=== PATIENT | female | born 1960 | race Caucasian/White ===

== ENCOUNTER 2018-03-14 17:13 | Emergency (ER) | payer MEDICARE ==
[2018-03-14 18:09] LABS: Absolute Lymphocytes (CBC) 3.5 K/uL (0.7-4.9); Absolute Monocytes 0.6 K/uL (0.1-1.3); Absolute Neutrophil 3.8 K/uL (1.8-8.0); Eosinophils % 1.1 % (0-4.4); Hematocrit 33.7 % (36.0-45.0); Lymphocytes % 43.7 % (15.3-44.8); MCH 29.6 pg (27.0-35.0); MCV 90.3 fL (80-100); MPV 9.7 fL (7.6-11.3); Monocytes % 7.5 % (3.3-12.3); RBC Red Blood Cell Count 3.73 M/uL (3.86-4.86)
[2018-03-14] MEDS ORDERED: ONDANSETRON 4 MG/2 ML VIAL ONE (18:11)
[2018-03-14] MEDS ORDERED: FENTANYL CITR 100 MCG/2 ML ONE (18:11)
[2018-03-14 18:18] LABS: Potassium 3.2 mEq/L (3.6-5.0)
[2018-03-14] MEDS ORDERED: DIPHENHYDRAMINE 50 MG/ML VIAL ONE (18:46)
[2018-03-14] MEDS ORDERED: METHYLPREDNISOLONE 125 MG INJ ONE (18:46)
[2018-03-14 19:22] LABS: Urine Blood NEGATIVE (NEG); Urine Glucose NEGATIVE (NEG); Urine Protein NEGATIVE (NEG); Urine Specific Gravity <1.005 (1.005-1.030)
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
--- NOTE | 2018-03-14 19:31 | RAD REPORT ---
EXAM DESCRIPTION: Tam Single View03/14/2018 5:38 pm CLINICAL HISTORY: Chest pain COMPARISON: none FINDINGS: The lungs appear clear of acute infiltrate. The heart is borderline enlarged IMPRESSION: No acute abnormalities displayed
[2018-03-14] MEDS ORDERED: MORPHINE 4 MG/ML SYR ONE (21:19)
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
--- NOTE | 2018-03-14 21:25 | RAD REPORT ---
EXAM DESCRIPTION: MRI - Brain W/Wo Cont - 03/14/2018 9:07 pm CLINICAL HISTORY: Cerebellar mass COMPARISON: Head CT March 2018 TECHNIQUE: Axial, sagittal, and coronal magnetic images of the brain were obtained. 18 cc MultiHance is administered intravenously. FINDINGS: T2 weighted sequences demonstrate a 9 millimeter area of low signal within the left cerebe llum. It demonstrates mild enhancement. An intracranial bleed is not seen. Diffusion-weighted/ADC mapping does not reveal evidence of acute infarction. The ventricles are normal caliber. Mild to moderate signal within the brainstem, periventricular deep white matter may represent ischemi c changes secondary to small vessel disease. The sinuses and mastoids are clear. IMPRESSION: A 9 millimeter area of abnormal signal within the left cerebellum probably either repres ents a cavernous angioma or atypical meningioma. The exam was discussed with Harvey Harvey in the Emergency Room
== END 2018-03-14 21:54 | disposition home or self-care (01) ==
LOC: ER 17:13
DX: S13.4XXA Sprain of ligaments of cervical spine, initial encounter (principal); G89.11 Acute pain due to trauma; I10 Essential (primary) hypertension; V49.49XA Driver injured in collision with other motor vehicles in traffic accident, initial encounter; Z91.040 Latex allergy status; Z91.048 Other nonmedicinal substance allergy status
CPT/HCPCS: 36415; 70450; 70553; 71045; 71260; 72125; 72170; 74177; 80048; 81003; 85025; 86850; 86900; 86901; 99285; A9577; J2405; J2930; J3010; Q9967; 80053; 85027

== ENCOUNTER 2018-05-19 01:26 | Emergency (ER) | payer MEDICARE ==
--- NOTE | 2018-05-19 02:27 | EDPHYS ---
Physician Documentation [facility] Name: Karma Poole Age: 57 yrs Sex: Female : 1960 Arrival Date: 05/19/2018 Time: 01:27 Bed 7 Private MD: Aníbal Goldsmith ED Physician Trino Sotelo HPI: 05/19 02:00 This 57 yrs old Female presents to ER via Ambulatory with complaints of Foot cp Pain, Other, Ankle pain. 02:00 The patient presents with pain, that is acute. The complaints affect the right foot. cp Context: resulted from an unknown cause, the patient can fully bear weight, the patient is able to ambulate. Onset: The symptoms/episode began/occurred 1 week(s) ago. 02:00 Patient also c/o of "catching" and "popping" of right middle finger for past 2-3 days. cp Patient denies injury. 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 - Social history:: Smoking status: unknown. - Ebola Screening: : Patient negative for fever greater than or equal to 101.5 degrees Fahrenheit, and additional compatible Ebola Virus Disease symptoms Patient denies exposure to infectious person Patient denies travel to an Ebola-affected area in the 21 days before illness onset No symptoms or risks identified at this time. ROS: 02:05 MS/extremity: Positive for right foot pain and "catching and popping" of right middle cp finger. 02:05 Eyes: Negative for injury, pain, redness, and discharge. cp 02:05 Constitutional: Negative for body aches, chills, fever, poor PO intake. 02:05 Cardiovascular: Negative for chest pain, edema, palpitations. 02:05 Respiratory: Negative for cough, shortness of breath, wheezing. 02:05 Abdomen/GI: Negative for abdominal pain, nausea, vomiting, and diarrhea. 02:05 Skin: Negative for cellulitis, rash. 02:05 All other systems are negative. Exam: 02:08 Constitutional: The patient appears in no acute distress, alert, awake, non-toxic, well cp developed, well nourished. 02:08 Head/Face: Normocephalic, atraumatic. cp 02:08 Eyes: Periorbital structures: appear normal, Conjunctiva: normal, no exudate, no injection, Lids and lashes: appear normal, bilaterally. 02:08 ENT: External ear(s): are unremarkable, Nose: is normal, Mouth: Lips: moist, Oral mucosa: moist, Posterior pharynx: is normal, airway is patent. 02:08 Chest/axilla: Inspection: normal. 02:08 Cardiovascular: Rate: tachycardic, Pulses: Pulses are 2+ in right radial artery and right dorsalis pedis artery. 02:08 Respiratory: the patient does not display signs of respiratory distress, Respirations: normal, no use of accessory muscles, no retractions, no splinting, no tachypnea. 02:08 Musculoskeletal/extremity: Extremities: grossly normal except: noted in the right hand: tenderness, along flexor side of right middle finger with catching of tendon at PIP joint when finger is flexed, There is no evidence of deformity, injury, noted in the medial aspect of plantar surface of right foot: swelling, tenderness, no evidence of deformity, erythema, injury, ROM: full active range of motion, in the right hand and right foot. 02:08 Skin: cellulitis, is not appreciated, no rash present. Vital Signs: 01:37 BP 110 / 78; Pulse 105; Resp 18; Temp 97.9(O); Pulse Ox 96% ; Weight 84.82 kg; Height 5 bp ft. 2 in. (157.48 cm); 03:03 BP 113 / 89; Pulse 84; Resp 18; Pulse Ox 96% on R/A; tl2 01:37 Body Mass Index 34.20 (84.82 kg, 157.48 cm) bp MDM: 01:41 Patient medically screened. cp 02:00 Differential diagnosis: dislocation, closed fracture, contusion, tendonitis. cp 02:25 Data reviewed: vital signs, nurses notes, radiologic studies, plain films. cp 02:25 Test interpretation: by ED physician or midlevel provider: plain radiologic studies. 05/19 01:47 Order name: XRAY Foot RIGHT 3 View 05/19 01:47 Order name: XRAY Hand RIGHT 3 View 05/19 02:28 Order name: Finger Splint; Complete Time: 03:02 cp Administered Medications: 03:03 Drug: Ibuprofen 800 mg Route: PO; tl2 03:04 Follow up: Response: No adverse reaction; Medication administered at discharge. tl2 03:03 Drug: traMADol 50 mg Route: PO; tl2 03:05 Follow up: Response: No adverse reaction; Medication administered at discharge. tl2 Disposition: 05/19/18 02:26 Discharged to Home. Impression: Trigger finger, right middle finger, Pain in right foot. - Condition is Stable. - Discharge Instructions: Trigger Finger, Foot Pain. - Prescriptions for Diclofenac Sodium 75 mg Oral Tablet, Delayed Release (E.C.) - take 1 tablet by ORAL route 2 times per day; 20 tablet. Tramadol 50 mg Oral Tablet - take 1 tablet by ORAL route every 8 hours as needed; 15 tablet. - Medication Reconciliation Form, Thank You Letter, Antibiotic Education, Prescription Opioid Use form. - Follow up: Ryley Rodriguez MD; When: 2 - 3 days; Reason: right middle trigger finger. Follow up: Norberto Catherine DPM; When: 2 - 3 days; Reason: right foot pain. - Problem is new. - Symptoms have improved. Addendum: 05/20/2018 04:43 Co-signature as Attending Physician, Trino Sotelo MD. g s Signatures: Dispatcher [employer] EDMS Collin Oscar PA PA cp Doris Santana RN RN tl2 Trino Sotelo MD MD Nixon Aguiar RN RN bp Corrections: (The following items were deleted from the chart) 05/19 03:05 02:26 05/19/2018 02:26 Discharged to Home. Impression: Trigger finger, right middle tl2 finger; Pain in right foot. Condition is Stable. Forms are Medication Reconciliation Form, Thank You Letter, Antibiotic Education, Prescription Opioid Use. Follow up: Ryley Rodriguez; When: 2 - 3 days; Reason: right middle trigger finger. Follow up: Norberto Catherine; When: 2 - 3 days; Reason: right foot pain. Problem is new. Symptoms have improved. cp
--- NOTE | 2018-05-19 02:27 | ER ---
Nurse's Notes [facility] Name: Karma Poole Age: 57 yrs Sex: Female : 1960 Arrival Date: 05/19/2018 Time: 01:27 Bed 7 Private MD: Aníbal Goldsmith Diagnosis: Trigger finger, right middle finger;Pain in right foot Presentation: 05/19 01:36 Presenting complaint: Patient states: RIGHT FOOT AND HEEL PAIN. Transition of care: bp patient was not received from another setting of care. Onset of symptoms was May 16, 2018. Risk Assessment: Do you want to hurt yourself or someone else? Patient reports no desire to harm self or others. Initial Sepsis Screen: Does the patient meet any 2 criteria? No. Patient's initial sepsis screen is negative. Does the patient have a suspected source of infection? No. Patient's initial sepsis screen is negative. Care prior to arrival: None. 01:36 Method Of Arrival: Ambulatory bp 01:36 Acuity: FEDE 4 bp Triage Assessment: 01:37 General: Appears in no apparent distress. comfortable, obese, Behavior is cooperative, bp appropriate for age, anxious. Pain: Complains of pain in right foot. 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 - Social history:: Smoking status: unknown. - Ebola Screening: : Patient negative for fever greater than or equal to 101.5 degrees Fahrenheit, and additional compatible Ebola Virus Disease symptoms Patient denies exposure to infectious person Patient denies travel to an Ebola-affected area in the 21 days before illness onset No symptoms or risks identified at this time. Screenin:01 Abuse screen: Denies threats or abuse. Denies injuries from another. Nutritional bp screening: No deficits noted. Tuberculosis screening: No symptoms or risk factors identified. Fall Risk None identified. Assessment: 01:37 General: Appears in no apparent distress. Behavior is appropriate for age. Pain: lp1 Complains of pain in lateral side of right foot and instep of right foot, heel Pain currently is 8 out of 10 on a pain scale. Quality of pain is described as stabbing, Aggravated by increased activity, weight bearing. Neuro: Level of Consciousness is awake, alert, obeys commands. Cardiovascular: Patient's skin is warm and dry. Respiratory: Respiratory effort is even, unlabored. GI: No signs and/or symptoms were reported involving the gastrointestinal system. : No signs and/or symptoms were reported regarding the genitourinary system. EENT: No signs and/or symptoms were reported regarding the EENT system. Derm: Skin is pink, warm \T\ dry. Musculoskeletal: Circulation, motion, and sensation intact. Range of motion: intact in all extremities. 03:03 Reassessment: Pt verbalized understanding of discharge instructions, need for follow up tl2 and prescription usage. Vital Signs: 01:37 BP 110 / 78; Pulse 105; Resp 18; Temp 97.9(O); Pulse Ox 96% ; Weight 84.82 kg; Height 5 bp ft. 2 in. (157.48 cm); 03:03 BP 113 / 89; Pulse 84; Resp 18; Pulse Ox 96% on R/A; tl2 01:37 Body Mass Index 34.20 (84.82 kg, 157.48 cm) bp ED Course: 01:27 Patient arrived in ED. es 01:32 Aníbal Goldsmith MD is Private Physician. es 01:35 Collin Oscar PA is PHCP. cp 01:35 Trino Sotelo MD is Attending Physician. cp 01:36 Triage completed. bp 01:36 Jeni Thompson, RN is Primary Nurse. lp1 01:37 Arm band placed on. bp 02:11 X-ray completed. Portable x-ray completed in exam room. Patient tolerated procedure kp1 well. 02:17 XRAY Foot RIGHT 3 View In Process Unspecified. EDMS 02:17 XRAY Hand RIGHT 3 View In Process Unspecified. EDMS 02:25 Ryley Rodriguez MD is Referral Physician. cp 02:25 Norberto Catherine DPM is Referral Physician. cp 03:01 Patient has correct armband on for positive identification. Bed in low position. Call bp light in reach. Side rails up X2. Adult w/ patient. 03:01 Aluminum finger splint applied to right middle finger. bp 03:03 No provider procedures requiring assistance completed. Patient did not have IV access tl2 during this emergency room visit. Administered Medications: 03:03 Drug: Ibuprofen 800 mg Route: PO; tl2 03:04 Follow up: Response: No adverse reaction; Medication administered at discharge. tl2 03:03 Drug: traMADol 50 mg Route: PO; tl2 03:05 Follow up: Response: No adverse reaction; Medication administered at discharge. tl2 Outcome: 02:26 Discharge ordered by . loulou 03:03 Discharged to home ambulatory, with family. tl2 03:03 Condition: stable 03:03 Discharge instructions given to patient, Instructed on discharge instructions, follow up and referral plans. no driving heavy equipment, medication usage, Demonstrated understanding of instructions, follow-up care, medications, Prescriptions given X 2. 03:05 Patient left the ED. tl2 Signatures: Dispatcher [employer] Concepción Guzman Laura, RN RN lp1 Collin Oscar PA PA cp Knox, Taylor, RN RN tl2 Addie Cid kp1 Nixon Aguiar RN RN bp Corrections: (The following items were deleted from the chart) 01:38 01:37 Temp 97.9F Oral; lp1 bp
[2018-05-19] MEDS ORDERED: IBUPROFEN 400 MG TAB ONE (03:02)
[2018-05-19] MEDS ORDERED: TRAMADOL HCL 50 MG TAB ONE (03:02)
--- NOTE | 2018-05-19 08:44 | RAD REPORT ---
EXAM DESCRIPTION: RAD - Hand Right 3 View - 05/19/2018 2:16 am CLINICAL HISTORY: Hand pain, abnormal range of motion third digit COMPARISON: None. FINDINGS: No fracture is identified. There is no dislocation or periosteal reaction noted. IP joint space degenerative changes are present. Findings are most pronounced in the second DIP joint. No thi rd digit subluxation or alignment abnormality identifiable. No evidence for an acute or chronic bone avulsion or flexion/extension tendon injury. No air or foreign body in the soft tissues. Degenerative changes present at the base of the first met acarpal. Trapezium bone is absent. Is difficult to determine if there has been any interposition mate rial placed. Implant material in this location can be isodense to soft tissue. This finding is not re levant to the acute presentation. IMPRESSION: Bone and joint degenerative changes are present as detailed. No acute or destructive fin ding. Specifically, no alignment abnormality of the third digit and no evidence on plain film for flexion/e xtension tendon injury.
--- NOTE | 2018-05-19 08:45 | RAD REPORT ---
EXAM DESCRIPTION: RAD - Foot Right 3 View - 05/19/2018 2:16 am CLINICAL HISTORY: Right foot and heel pain, no precipitating injury COMPARISON: March 06 FINDINGS: No fracture, dislocation or periosteal reaction. There is remodeling of the fifth metatars al from remote fracture. Mild IP joint degenerative changes are present along with mild first MTP lorena nt degenerative change. Small plantar spur is similar to the prior examination. No air or foreign body in the soft tissues. IMPRESSION: No fracture or acute bone process. Degenerative changes are similar to the February examinati on.
== END 2018-05-19 03:05 | disposition home or self-care (01) ==
LOC: ER 01:26
DX: M65.331 Trigger finger, right middle finger (principal); I10 Essential (primary) hypertension; E78.00 Pure hypercholesterolemia, unspecified; Z91.040 Latex allergy status; Z91.048 Other nonmedicinal substance allergy status
CPT/HCPCS: 99284